=== PATIENT | female | born 1965 | race Caucasian/White ===

== ENCOUNTER 2016-08-01 05:24 | Inpatient (IN) | payer BC ==
[2016-07-24 09:26] LABS: URINE BILIRUBIN NEGATIVE (Negative); URINE BLOOD NEGATIVE (Negative); URINE COLOR YELLOW; URINE GLUCOSE-RANDOM* NEGATIVE (Negative); URINE KETONES NEGATIVE (Negative); URINE LEUKOCYTES-REFLEX TRACE (Negative); URINE PROTEIN (DIPSTICK) NEGATIVE (Negative); URINE UROBILINOGEN 0.2 E.U./dl (0.2-1.0)
[2016-07-24 09:27] LABS: HEMATOCRIT 43.4 % (37.0-47.0); HEMOGLOBIN 14.9 gm/dL (12.0-15.0); MCH 29.6 pg (26.0-34.0); MCHC 34.3 g/dL (28.0-37.0); MCV 86.4 fL (80.0-100.0); RBC 5.02 mil/uL (4.20-5.00); WBC 8.5 thou/uL (4.0-11.0)
[2016-07-24 09:41] LABS: PROTIME 10.2 Seconds (9.3-11.4)
[2016-07-24 10:08] LABS: ALBUMIN 4.2 g/dL (3.4-5.0); CALCIUM 9.4 mg/dL (8.5-10.1); CREATININE 0.9 mg/dL (0.6-1.0); POTASSIUM 3.6 mmol/L (3.5-5.1)
[~2016-08-01] VITALS: Ht 177.8 cm; Wt 113.4 kg
[2016-08-01] VITALS (13 sets, daily range): BP systolic 93–125; BP diastolic 62–85
--- NOTE | ~2016-08-01 | O ---
[facility] [place] [address] OPERATIVE REPORT Name: TYSHAWN YANCEY Room #: 548-I [facility] IN M.R.#: [id number] Admission: 08/01/16 Attend Phys: Johnathan Roblero MD Discharge: 08/02/16 Date of : 67 Report #: [id number] THIS REPORT FOR: //name// CC: Davi Roblero DATE OF SERVICE: 08/01/2016 PREOPERATIVE DIAGNOSES: 1. Right hip osteoarthritis. 2. Obesity with body mass index of 36. POSTOPERATIVE DIAGNOSES: 1. Right hip osteoarthritis. 2. Obesity with body mass index of 36. PROCEDURE: Right total hip arthroplasty. SURGEON: Johnathan Roblero MD. ENGINEERING SCIENTIST: Jyoti Joya PA-C. ANESTHESIA: General endotracheal. IMPLANTS: [employer] size 13 high offset Synergy press-fit femur, size 52 R3 acetabular cup with one acetabular screw and a size 36+0 Oxinium head. ESTIMATED BLOOD LOSS: 150 mL. COMPLICATIONS: None. SPECIMENS: None. CONDITION UPON LEAVING THE OPERATING ROOM: Stable. INDICATIONS FOR PROCEDURE: The patient is a 50-year-old female with right hip osteoarthritis. She had failed conservative treatment for this, and after discussion with her, elected for right total hip arthroplasty. DESCRIPTION OF PROCEDURE: Risks, benefits, alternatives, and complications were discussed in detail with the patient including but not limited to risk of anesthesia, risk of damage to nerves, arteries, blood vessels, risk for infection, bleeding, risk for continued hip pain, leg length discrepancy, instability, and need for reoperation. An informed consent was obtained from the patient. Right hip was appropriately marked in the preoperative holding area. She was brought to the operating room and placed in the supine position [address] [address] OPERATIVE REPORT Name: TYSHAWN YANCEY Room #: 548-I [facility] IN Stanley.Manisha.#: [id number] Admission: 08/01/16 Attend Phys: Johnathan Roblero MD Discharge: 08/02/16 Date of : 67 Report #: [id number] on the operating room table, 2 grams of IV Ancef was given for preoperative antibiotics. She was placed in the supine position on the operating room table. General endotracheal anesthesia was induced without complication. She was placed in the left lateral decubitus position with the right hip uppermost. Right hip and lower extremity were then prepped and draped in the normal sterile fashion. A timeout was performed properly identifying the patient and procedure, as well as the instrumentation and implants. All in the operating room were in agreement. Standard posterior approach to the hip was made with #10 blade through the skin. Dissection was taken down to the fascia with Bovie cautery, and this was cleaned off with Love elevator. A fresh #10 blade was used to make a fascial incision. This was taken proximally and distally with curved Sen scissor. The trochanteric bursa was taken down with Bovie cautery. The piriformis tendon was identified, tagged, and taken down with Bovie. The short external rotators were also taken down with Bovie cautery. Capsulotomy was made, and capsule ends were tagged for later repair. Hip was dislocated, and there was significant osteoarthritic change. The superior femoral head and a femoral neck cut was made 1 cm proximal to the lesser trochanter, based on preoperative templating. The femoral head was removed. Deep acetabular retractors were placed, and the labrum was removed sharply. Pulvinar was removed with Bovie cautery. The acetabulum was then sequentially reamed up to a size 52. At which point, there was excellent bleeding cancellous bone. This was trialed with a size 51 cup and found to have a good fit. A final size 52 R3 acetabular cup was then placed and seated. One acetabular screw was placed for backup fixation, and the polyethylene liner was placed. After this, attention was turned to the femur. This was reamed and broached up to the size 13, at which point, the 13 broach was stable. This was trialed with a high offset neck and a 36+0 head. The hip was reduced, taken through range of motion, found to be stable, found to have equal leg lengths. Hip was dislocated and the broach was removed, and final size 13 high offset Synergy press fit stem was placed. This was trialed again with a 36+0 head. Hip was reduced, taken through range of motion, found to be stable, found to have equal leg lengths. Hip was dislocated once more and a final size 36+0 Oxinium head was placed. Hip was reduced, taken through range of motion, found to be stable, found to have equal leg lengths. The wound was thoroughly irrigated with normal saline. Periarticular injection consisting of morphine, ropivacaine, epinephrine, and Toradol was placed around the hip joint and capsule. The piriformis and capsule were repaired with 0 FiberWire. The fascia was closed with 0 Vicryl, skin was closed with 2-0 Vicryl, and 3-0 Monocryl. Dermabond and Aquacel dressing were applied. The patient tolerated this procedure well and went to the recovery room under the care of anesthesia postoperatively. <ELECTRONICALLY SIGNED> By: Johnathan Roblero MD 08/07/16 0836 [id number] [id number] Johnathan Roblero MD /nt
--- NOTE | ~2016-08-01 | EKG ---
[address] [address] ELECTROCARDIOGRAM REPORT Name: TYSHAWN YANCEY Room #: PRE IN .#: [id number] Admission: Attend Phys: Johnathan Roblero MD Discharge: Date of : 67 Report #: [id number] THIS REPORT FOR: //name// [facility] Test Date: 2016-07-24 Test Time: 09:23:41 Pat Name: TYSHAWN YANCEY Department: Room: Gender: F Director Learning: KANG WEBER : 1965 Requested By: Johnathan Roblero Order Number: [id number] MD: Kennedy Almazan Measurements Intervals [place] Rate: 72 P: 70 NC: 168 QRS: 64 QRSD: 90 T: 36 QT: 417 QTc: 457 Interpretive Statements Sinus rhythm Normal tracing No previous ECG available for comparison Electronically Signed On 07-25-2016 7:13:00 CDT by Kennedy Almazan [email or web address] <ELECTRONICALLY SIGNED> By: Kennedy Almazan MD, [facility] 07/25/16 0713 0923 0923 Kennedy Almazan MD, FAC /EPI
[~2016-08-01 05:24] MED LIST: DEXILANT60 MG PO; DIETHYLPROPION75 MG PO; MAXZIDE-25 MG1 EACH PO; METFORMIN HCL500 MG PO; TOPAMAX50 MG PO; TOPROL XL25 MG PO; WELLBUTRIN XL300 MG PO
[2016-08-02 04:26] VITALS: BP 105/59
[2016-08-02 06:28] LABS: HEMATOCRIT 33.8 % (37.0-47.0); HEMOGLOBIN 11.6 gm/dL (12.0-15.0); MCH 29.5 pg (26.0-34.0); MCHC 34.2 g/dL (28.0-37.0); MCV 86.1 fL (80.0-100.0); RBC 3.93 mil/uL (4.20-5.00)
[2016-08-02 07:51] VITALS: BP 99/57
[2016-08-02] MEDS ORDERED: CVS BUFFERED A325 MG PO (12:12)
[2016-08-02] MEDS ORDERED: PERCOCET 10-321 EACH PO (12:13)
[2016-08-02] MEDS ORDERED: MS CONTIN15 MG PO (12:13)
[2016-08-02] MEDS ORDERED: NEURONTIN 300300 M1 PO (12:13)
[2016-08-02 12:31] VITALS: BP 99/57
== END 2016-08-02 13:45 | disposition home health service (06) | DRG 470 ==
LOC: TBA 05:24 → 5S 05:24 → PRE 06:01 → 5S 10:44 → PRE 12:48 → 5S 08-02 13:45
PROVIDERS: Orthopaedic Surgery
PROC: 0SR90JA Replacement of Right Hip Joint with Synthetic Substitute, Uncemented, Open Approach (ICD-10-PCS; principal; 2016-08-01)
DX: M16.11 Unilateral primary osteoarthritis, right hip (principal); E66.9 Obesity, unspecified; F32.9 Major depressive disorder, single episode, unspecified; K21.9 Gastro-esophageal reflux disease without esophagitis; I10 Essential (primary) hypertension; E11.9 Type 2 diabetes mellitus without complications; Z79.4 Long term (current) use of insulin; Z68.36 Body mass index [BMI] 36.0-36.9, adult; Z79.899 Other long term (current) drug therapy
CPT/HCPCS: 10785; 50010; 50101; 50382; 50414; 50612; 51771; 52256; 53000; 53078; 53368; 54118; 56524; 56527; 56528; 56530; 57095; 62110; 62900; 70005

== ENCOUNTER 2016-08-11 10:06 | Emergency (ER) | payer BC ==
[~2016-08-11] VITALS: Ht 177.8 cm; Wt 113.4 kg
[~2016-08-11 10:06] MED LIST changes: +CVS BUFFERED A325 MG PO; +MS CONTIN15 MG PO; +NEURONTIN 300300 M1 PO; +PERCOCET 10-321 EACH PO
== END 2016-08-11 11:28 | disposition home or self-care (01) ==
LOC: ER 10:06
DX: G89.18 Other acute postprocedural pain (principal); K21.9 Gastro-esophageal reflux disease without esophagitis; F32.9 Major depressive disorder, single episode, unspecified; I10 Essential (primary) hypertension; Z90.49 Acquired absence of other specified parts of digestive tract; Z90.710 Acquired absence of both cervix and uterus